=== PATIENT | female | born 1950 | race Caucasian/White ===

== ENCOUNTER → 2022-06-14 | Day surgery (SDC) | payer OTHER ==
[~2022-06-14] VITALS: Ht 157.5 cm; Wt 36.9 kg
[~2022-06-14] MED LIST: ASPIRIN EC81 MG PO; AZO CRANBERRY1 EAC1 PO; B12 IJ; CARDIZEM CD120 MG PO; CLONAZEPAM2 MG PO; FE C TABLET1 EACH PO; HCTZ25 MG PO; LIPITOR 10MG TA10 MG PO; OMEGA 3 1,0001 EACH PO; OS-CAL500 MG PO; OXYMETAZOLINE EYEBOTH; PROTONIX 40MG T40 MG PO; RESTASIS1 EACH EYEBOTH; SINGULAIR10 MG PO; TYRVAYA0.03 MG/0.; ZOLOFT100 MG PO; [UNRECOGNIZED DRUG - OTHER] EYEBOTH
[2022-06-14 09:57] LABS: HCT 37.3 % (37.0-47.0); HGB 12.1 g/dl (12.5-16.0); MCH 26.7 pg (25.0-31.0); MCHC 32.4 g/dL (32.0-36.0); MCV 82.3 fL (78.0-100.0); MPV 8.9 fL (6.0-9.5); RBC 4.53 M/uL (4.20-5.40); RDW 14.6 % (11.5-14.0); WBC 4.3 K/uL (4.0-10.5)
[2022-06-14 10:32] LABS: BILIRUBIN - TOTAL 0.7 mg/dL (0.2-1.0); BUN/CREAT RATIO (CALC) 14.5 RATIO; CREATININE 0.69 mg/dL (0.51-0.95); GLOBULIN (CALCULATION) 3.2 g/dL; POTASSIUM 2.5 mmol/L (3.5-5.1); TOTAL PROTEIN 7.2 g/dL (6.4-8.2)
--- NOTE | 2022-06-14 11:28 | NUR ---
FANY HENSON NOTIFIED OF PATIENTS POTASSIUM LEVELPER Joaquin QUEEN RN. NO ORDERS RECEIVED
--- NOTE | 2022-06-14 12:41 | NUR ---
UP TO WALK IN DELONG AND THEN TO BATHROOM. LESS NAUSEA. REPORTS STOMACH CRAMPS
== END | disposition home or self-care (01) ==
LOC: FAS 09:23
PROVIDERS: Surgery
DX: D50.9 Iron deficiency anemia, unspecified (principal); K29.60 Other gastritis without bleeding; K63.89 Other specified diseases of intestine; K58.9 Irritable bowel syndrome, unspecified
CPT/HCPCS: 36415; 80053; J1610; J2405; J2704; J7120